=== PATIENT | male | born 1935 | race Hispanic/Latino ===

== ENCOUNTER → 2018-10-21 | Outpatient (CLI) | payer MEDICARE ==
[~2018-10-21] MED LIST: ALLOPURINOL300 MG PO; AMLODIPINE BESYL5 MG PO; ATENOLOL50 MG PO; CITALOPRAM HBR20 MG PO; HYDROXYZINE HCL25 MG PO; OMEPRAZOLE20 M1 PO; SIMVASTATIN40 MG PO; TYLENOL WITH C1 EACH PO
== END ==
LOC: SLEEP 20:13
PROVIDERS: ATTEND Internal Medicine Critical Care Medicine
DX: G47.33 Obstructive sleep apnea (adult) (pediatric) (principal)
CPT/HCPCS: 95810

== ENCOUNTER → 2019-01-16 | Outpatient (CLI) | payer MEDICARE | LOC: SLEEP 20:10 | PROVIDERS: ATTEND Internal Medicine Critical Care Medicine | DX: G47.30 Sleep apnea, unspecified (principal) | CPT/HCPCS: 95811 ==